=== PATIENT | female | born 1935 | race Caucasian/White ===

== ENCOUNTER → 2019-06-07 16:11 | Outpatient (BNVA) | payer MEDICARE, SELFPAY | PROVIDERS: Family Provider Internal Medicine; PCP Internal Medicine; Visit Provider Internal Medicine | DX: I10 Essential (primary) hypertension (principal); D51.0 Vitamin B12 deficiency anemia due to intrinsic factor deficiency; M10.9 Gout, unspecified; E03.9 Hypothyroidism, unspecified | CPT/HCPCS: 83540; 83550; 84443 ==

== ENCOUNTER → 2019-10-17 10:10 | Outpatient (BNVA) | payer MEDICARE, SELFPAY | PROVIDERS: Family Provider Internal Medicine; PCP Internal Medicine; Visit Provider Urology | DX: N35.92 Unspecified urethral stricture, female (principal); N34.3 Urethral syndrome, unspecified | CPT/HCPCS: 81001 ==

== ENCOUNTER → 2019-12-15 16:10 | Outpatient (BNVA) | payer MEDICARE, SELFPAY | PROVIDERS: Family Provider Internal Medicine; PCP Internal Medicine; Visit Provider Internal Medicine | DX: E11.9 Type 2 diabetes mellitus without complications (principal); K75.81 Nonalcoholic steatohepatitis (NASH); D51.0 Vitamin B12 deficiency anemia due to intrinsic factor deficiency; E78.5 Hyperlipidemia, unspecified | CPT/HCPCS: 80053; 80061; 83036; 84443; 85025 ==

== ENCOUNTER 2020-01-27 08:53 | Outpatient (CLI) | payer MEDICARE, SELFPAY ==
--- NOTE | 2020-01-27 09:00 | MM_ITS ---
WS: [id number] Bilateral screening digital mammogram, 01/27/2020 Clinical Data: SCREENING Comparison: 01/07/2019, 01/04/2018, 12/23/2016. Findings: The breast parenchymal pattern shows heterogeneous density. No spiculated masses or clustered calcifi cations are seen. There are no secondary signs of carcinoma. There are 2 biopsy markers in the medial aspect of the left breast. There are scattered benign calcifications which are probably ductal throu ghout both breasts. MM/[id number] Impression: 1. Negative bilateral mammogram unchanged. 2. Recommend annual screening mammograms. BIRADS: 2-Benign FOLLOW UP: 1 Year Follow-up The CAD production checker was used.
== END 2020-01-27 08:54 | disposition home or self-care (01) ==
LOC: RADSHAW 08:59
PROVIDERS: PCP Internal Medicine; Visit Provider Internal Medicine
DX: Z12.31 Encounter for screening mammogram for malignant neoplasm of breast (principal)
CPT/HCPCS: 77067

== ENCOUNTER → 2020-06-19 16:44 | Outpatient (BNVA) | payer MEDICARE, SELFPAY | PROVIDERS: PCP Internal Medicine; Visit Provider Internal Medicine | DX: R30.0 Dysuria (principal); E11.8 Type 2 diabetes mellitus with unspecified complications; R20.8 Other disturbances of skin sensation; D51.0 Vitamin B12 deficiency anemia due to intrinsic factor deficiency; E03.9 Hypothyroidism, unspecified; I25.10 Atherosclerotic heart disease of native coronary artery without angina pectoris | CPT/HCPCS: 80053; 80061; 81000; 83036; 83550; 84443; 85025 ==

== ENCOUNTER → 2020-11-21 10:13 | Outpatient (BNVA) | payer MEDICARE, SELFPAY | PROVIDERS: PCP Internal Medicine; Visit Provider Urology | DX: N39.0 Urinary tract infection, site not specified (principal); R39.198 Other difficulties with micturition | CPT/HCPCS: 81003 ==

== ENCOUNTER → 2021-03-05 09:22 | Outpatient (BNVA) | payer MEDICARE, SELFPAY | PROVIDERS: PCP Internal Medicine; Visit Provider Internal Medicine | DX: Z01.812 Encounter for preprocedural laboratory examination (principal); Z86.010 Personal history of colon polyps; Z20.822 Contact with and (suspected) exposure to COVID-19 | CPT/HCPCS: 87635 ==

== ENCOUNTER 2021-03-11 06:24 | Day surgery (SDC) | payer MEDICARE, SELFPAY ==
[2021-03-06 12:53] VITALS: BMI 27.4
[2021-03-11 06:48] VITALS: BP 147/71; PULSE 67; RESP 18; TEMP 36.1; O2SAT 99
[2021-03-11] MEDS: sodium chloride 0.9% 1,000 ML 30 ML IV (07:00)
--- NOTE | 2021-03-11 07:02 | ANES.PREANE2 ---
Pre-Anesthetic Assessment Pre-Anesthetic Assessment: Height/Weight: Height 1.63 m Weight 72.575 kg Temp Pulse Resp BP Pulse Ox 97 F L 67 18 147/71 99 03/11/21 06:48 03/11/21 06:48 03/11/21 06:48 03/11/21 06:48 03/11/21 06:48 Preop Diagnosis: His polyps Proposed Procedure: Operation Date: 03/11/21 07:30 Proposed Procedures p Colonoscopy 34087 Z86.010(Not Applicable) - Prosper Slade MD Familial anesthetic complications: hard to wake up Was Beta Zane taken within 24 hours: Yes Was Clonidine taken within 24 hours: N/A Last intake: Intake Last Liquid Date 03/10/21 Last Liquid Time 19:30 Last Solid Date 03/09/21 Last Solid Time 00:00 Social: Social History: No alcohol and No tobacco Exam: Pre-Anes Outpt Exam: alert, oriented x 3, clear to auscultation bilaterally and regular rate & rhythm Airway: Submandibular: WNL Cervical ROM: WNL MP: 1 Dentition: False History/ROS: No significant history except as noted Pulmonary: Pulmonary: SOB CV/HEM: CV/HEM: CAD, CHF and HTN Comments: 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 : : None reported Hepatic: Hepatic: None reported GI: GI: GERD Metabolic: Metabolic: DM and Thyroid Neuropsych: Neuropsych: None reported Anesthetic Plan: ASA status: 3 Anesthesia: MAC Risk of > 500 ml blood loss (7ml/kg in children): No Meds/Allergies Current Medications: Current Medications Generic Name Dose Route Start Last Admin Trade Name Freq PRN Reason Stop Dose Admin Sodium Chloride 1,000 mls @ 30 ml s/hr 03/11/21 06:45 03/11/21 07:00 Sodium Chloride 0.9% IV 30 mls/hr .Q24H LING Administration PFSH Anesthesia PFSH: Medical History (Updated 02/04/21 @ 13:55 by Prosper Slade MD) Acquired hypothyroidism CAD (coronary artery disease) Diabetes mellitus Dyslipidemia GERD (gastroesophageal reflux disease) Gout History of colon polyps [place] (hard of hearing) Slow urinary stream Vitamin B12 deficiency anemia due to intrinsic factor deficiency Surgical History History of appendectomy History of breast surgery History of cholecystectomy History of colonoscopy History of dilation of urethra History of hysterectomy S/P CABG (coronary artery bypass graft) Family History Other Cancer Diabetes Heart disease Lung disease Social History Smoking and tobacco status: never smoked Alcohol intake: never Household members: none Housing: House Marital status: / History of recent travel: No Data Anesthesia Cardiac Studies: No Data to Display
--- NOTE | 2021-03-11 07:47 | P.HP_ITS ---
Same Day Surgery H&P Indication for Procedure/HPI DATE OF PROCEDURE: March 11, 2021 CHIEF COMPLAINT/INDICATIONFOR SURGICAL PROCEDURE: History of polyps PREOP DIAGNOSIS: His polyps PLANNED PROCEDRUE: Operation Date: 03/11/21 07:30 Proposed Procedures p Colonoscopy 42559 Z86.010(Not Applicable) - Prosper Slade MD Medications/Allergies* Home Medications Medication Instructions Recorded Confirmed Type acetaminophen 500 mg tablet 500 mg PO Q6H PRN 08/31/19 03/11/21 History alendronate 70 mg PO .WEEKLY 03/11/21 03/11/21 History Allergies/Adverse Reactions Allergy/AdvReac Type Severity Reaction Status Date / Time adhesive tape Allergy ALGY-Rash Verified 03/11/21 06:50 aspirin Allergy ADR-Gastrointestinal Verified 03/11/21 07:26 Upset betamethasone Allergy ADR-Chest Verified 03/11/21 07:26 [From Celestone] Pain codeine Allergy ADR-Nausea Verified 03/11/21 07:26 cortisone Allergy ADR-Hyperte Verified 03/11/21 07:26 nsion diazepam [From Valium] Allergy ALGY-Rash Verified 03/11/21 07:26 dichloralphenazone Allergy ADR-Chest Verified 03/11/21 07:26 [From Midrin] Pain dimenhydrinate Allergy ADR-Drowsy Verified 03/11/21 07:26 [From Dramamine] hydrocortisone Allergy ADR-Nausea Verified 03/11/21 07:26 isometheptene [From Midrin] Allergy ADR-Headach Verified 03/11/21 07:26 e methylprednisolone Allergy ADR-Diarrhe Verified 03/11/21 07:26 a naproxen [From Anaprox] Allergy ADR-Diarrhe Verified 03/11/21 07:26 a NSAIDS (Non-Steroidal Allergy ADR-Diarrhe Verified 03/11/21 07:26 Anti-Inflamma a Opioids - Morphine Analogues Allergy Unknown Verified 03/11/21 07:26 oxycodone [From Percodan] Allergy ADR-Gastrointestinal Verified 03/11/21 07:26 Upset phenylpropanolamine Allergy ADR-Hyperte Verified 03/11/21 07:26 nsion prednisone Allergy ADR-Diarrhe Verified 03/11/21 07:26 a salsalate Allergy ADR-Blurry Verified 03/11/21 07:26 Vision spironolactone Allergy Unknown Verified 02/04/21 13:30 [From Aldactone] Sulfa (Sulfonamide Allergy ALGY-Fever Verified 03/11/21 07:26 Antibiotics) sulfasalazine Allergy ADR-Chest Verified 03/11/21 07:26 [From Azulfidine] Pain Thiazides Allergy ALGY-Rash Verified 03/11/21 07:26 Current Medications: Generic Name Dose Route Start Last Admin Trade Name Freq PRN Reason Stop Dose Admin Sodium Chloride 1,000 mls @ 30 mls/hr 03/11/21 06:45 03/11/21 07:00 Sodium Chloride 0.9% IV 30 mls/hr .Q24H LING Administration Pertinent History/Comorbid Conditions* Medical History (Updated 02/04/21 @ 13:55 by Prosper Slade MD) Acquired hypothyroidism CAD (coronary artery disease) Diabetes mellitus Dyslipidemia GERD (gastroesophageal reflux disease) Gout History of colon polyps [place] (hard of hearing) Slow urinary stream Vitamin B12 deficiency anemia due to intrinsic factor deficiency Surgical History (Updated 09/29/19 @ 16:18 by Rolando Dennison MD) History of appendectomy History of breast surgery History of cholecystectomy History of colonoscopy History of dilation of urethra History of hysterectomy S/P CABG (coronary artery bypass graft) Family History (Updated 06/01/19 @ 11:03 by Cathi Ayers LPN) Diabetes Heart disease Lung disease Cancer Social History Smoking and tobacco status: never smoked Alcohol intake: never Household members: none Housing: House Marital status: / History of recent travel: No Pertinent Exam Findings alert, oriented x 3, clear to auscultation bilaterally, regular rate & rhythm, operative site marked and procedure specific exam findings Recommendations Surgery/Procedure today Coding Level of Care Code Acute Distribution Collection Operator for Sakshi Ridley
[2021-03-11 08:20] VITALS: BP 139/65; PULSE 77; RESP 16; TEMP 36.1; O2SAT 100
--- NOTE | 2021-03-11 08:53 | ANE.PACU2 ---
Inpatient post-anesthesia follow up: Airway intact: Yes Vital signs: Temperature 97 F Pulse Rate 77 Respiratory Rate 16 Blood Pressure 139/65 Pulse Oximetry 100 Oxygen Delivery Me thod Room Air Oxygen Flow Rate 3 Fraction of Inspir ed Oxygen Hydration adequate: No Mental status: Baseline
--- NOTE | 2021-03-11 09:01 | XR_ITS ---
WS: [id number] Exam: XR abdomen 1V* [id number] Date/Time of Exam: 03/11/2021 9:01 AM Reason For Exam: abdominal pain following colonoscopy There is gaseous distention of both large and small bowel which may be a result of recent endoscopy. No free air identified. Organ margins are obscured. Regional bony elements are unremarkable. XR/XR abdomen 1V* [id number] IMPRESSION: 1. Gaseous distention of both large and small bowel loops which may be a result of the endoscopy or adynamic ileus. No sign of the free air or other significa nt finding.
--- NOTE | 2021-03-11 09:10 | PC.NURSE ---
Pt has passed gas and had bowel movement, she continues to complain of LLQ pain, informed Dr. Slade who ordered upright abdominal XRay prior to discharge.
--- NOTE | 2021-03-11 09:43 | PC.NURSE ---
Abdominal Xray was negative for perforation, per Dr. Slade instruction inserted rectal tube was inserted and remained for 15 minutes relieving pt's discomfort. pt states abdominal pain decreased to 3/10. Per Dr's order, pt discharged home.
[2021-03-11 14:25] LABS: Glucose Point of Care 106 mg/dL (70-110)
== END 2021-03-11 10:00 | disposition home or self-care (01) ==
PROVIDERS: PCP Internal Medicine; Visit Provider Internal Medicine
PROC: 0DJD8ZZ Inspection of Lower Intestinal Tract, Via Natural or Artificial Opening Endoscopic (ICD-10-PCS; CPT 45378; principal; 2021-03-11 07:30)
DX: Z86.010 Personal history of colon polyps (principal); K21.9 Gastro-esophageal reflux disease without esophagitis; I25.10 Atherosclerotic heart disease of native coronary artery without angina pectoris; D51.8 Other vitamin B12 deficiency anemias; E03.9 Hypothyroidism, unspecified; E11.9 Type 2 diabetes mellitus without complications; Z79.84 Long term (current) use of oral hypoglycemic drugs; Z88.6 Allergy status to analgesic agent; Z88.5 Allergy status to narcotic agent; Z88.2 Allergy status to sulfonamides; Z90.89 Acquired absence of other organs; Z90.49 Acquired absence of other specified parts of digestive tract; Z83.3 Family history of diabetes mellitus
CPT/HCPCS: 36416; 45378; 74018; 82962; 96360; J2704; J3490; J7030

== ENCOUNTER 2021-03-15 09:07 | Outpatient (CLI) | payer MEDICARE, SELFPAY ==
--- NOTE | 2021-03-15 09:20 | MM_ITS ---
WS: [id number] Exam: [place] [id number] Date/Time of Exam: 03/15/2021 9:45 AM Reason For Exam: SCREENING VIEWS: MLO and CC views both breasts. Comparison made with prior exam of 12/23/2016, 01/04/2018, 01/07/2019 and 01/27/2020 . Findings: There was no sign of mass, architectural distortion or suspicious calcification in either breast. He terogeneously [place] MM/[place] [id number] Impression: BI-RADS: 2-Benign FOLLOW-UP: 1 Year Follow-up This mammogram was also analyzed by the Computer Aided Detection System R2 Imag e Staff Development Educator.
== END 2021-03-15 09:08 | disposition home or self-care (01) ==
LOC: RADSHAW 09:12
PROVIDERS: PCP Internal Medicine; Visit Provider Internal Medicine
DX: Z12.31 Encounter for screening mammogram for malignant neoplasm of breast (principal)
CPT/HCPCS: 77067

== ENCOUNTER → 2021-05-23 10:56 | Outpatient (BNVA) | payer MEDICARE, SELFPAY | PROVIDERS: PCP Internal Medicine; Visit Provider Urology | DX: N34.3 Urethral syndrome, unspecified (principal) | CPT/HCPCS: 81003 ==

== ENCOUNTER → 2021-11-25 14:21 | Outpatient (BNVA) | payer MEDICARE, SELFPAY | PROVIDERS: PCP Internal Medicine; Visit Provider Urology | DX: N34.3 Urethral syndrome, unspecified (principal) | CPT/HCPCS: 52281; 99212 ==

== ENCOUNTER 2022-03-18 14:45 | Outpatient (CLI) | payer MEDICARE, SELFPAY ==
--- NOTE | 2022-03-18 14:56 | MM_ITS ---
WS: [id number] BILATERAL 3D TOMOSYNTHESIS DIGITAL SCREENING MAMMOGRAPHY WITH CAD CLINICAL INFORMATION: SCREENING HISTORY: Screening mammogram. No current complaints. COMPARISON: March 15, 2021 TECHNIQUE: Bilateral CC and MLO views. FINDINGS: The breasts are composed of heterogeneous fibroglandular density tissue, which can limit the detectio n of small underlying mass lesions. No suspicious mass, asymmetry, calcifications, or architectural d istortion. No evidence of malignancy. Dystrophic calcifications. Vascular calcifications. Biopsy clip LEFT breast. Secretory calcifications. MM/[id number] IMPRESSION: BI-RADS: 2-Benign FOLLOW UP: 1 Year Follow-up Recommend return to annual screening mammography.
== END 2022-03-18 14:46 | disposition home or self-care (01) ==
LOC: RAD 14:50
PROVIDERS: PCP Internal Medicine; Visit Provider Internal Medicine
DX: Z12.31 Encounter for screening mammogram for malignant neoplasm of breast (principal)
CPT/HCPCS: 77063; 77067

== ENCOUNTER → 2022-06-10 13:09 | Outpatient (BNVA) | payer MEDICARE, SELFPAY | PROVIDERS: PCP Nurse Practitioner; Visit Provider Urology | DX: N34.3 Urethral syndrome, unspecified (principal); R30.0 Dysuria | CPT/HCPCS: 52281; 81003; 87086; 99213 ==

== ENCOUNTER → 2022-07-10 14:52 | Outpatient (BNVA) | payer MEDICARE, SELFPAY | PROVIDERS: PCP Internal Medicine; Visit Provider Nurse Practitioner Family | DX: I25.10 Atherosclerotic heart disease of native coronary artery without angina pectoris (principal); Z95.1 Presence of aortocoronary bypass graft | CPT/HCPCS: 93005; 99213 ==

== ENCOUNTER 2022-07-15 15:37 | Outpatient (CLI) | payer MEDICARE, SELFPAY ==
[2022-07-15 16:13] LABS: Basophils % 0.4 %; Eosinophils # 0.1 10^3/uL (0.0-0.8); Eosinophils % 1.8 %; Hematocrit 37.4 % (37.0-47.0); Hemoglobin 12.2 g/dL (11.5-15.3); Lymphocytes # 1.7 10^3/uL (0.8-4.8); Lymphocytes % 30.5 %; Mean Corpuscular HGB Conc 32.6 g/dL (30.0-36.0); Mean Corpuscular Hemoglobin 31.4 pg (28.0-34.0); Mean Corpuscular Volume 96.1 fl (81-99); Mean Platelet Volume 8.5 fL (7.4-10.4); Monocytes # 0.4 10^3/uL (0.2-0.9); Neutrophils # 3.38 10^3/uL (1.8-7.7); Neutrophils % 60.1 %; Nucleated Red Blood Cells % 0 %; Platelet Count 120 10^3/cmm (130-400); Red Blood Count 3.89 10^6/uL (4.1-5.3); Red Cell Distribution Width 14.3 % (12.1-15.1); White Blood Count 5.6 10^3/uL (4.0-10.0)
[2022-07-15 16:24] LABS: INR 0.91 (0.83-1.21); Prothrombin Time (Patient) 12.5 Seconds (12.0-15.1)
[2022-07-15 16:30] LABS: Anion Gap 13.4 (5-19); Blood Urea Nitrogen 17 mg/dL (8-23); Calcium 9.5 mg/dL (8.5-10.5); Carbon Dioxide 34 mmol/L (22-29); Chloride 100 mmol/L (98-107); Glucose 72 mg/dL (65-115); Osmolality Calculated 298 mOsm/kg (285-295); Potassium 3.4 mmol/L (3.5-5.1); Sodium 144 mmol/L (136-145)
== END 2022-07-15 15:38 | disposition home or self-care (01) ==
LOC: LAB 15:49
PROVIDERS: PCP Internal Medicine; Visit Provider Internal Medicine
DX: I10 Essential (primary) hypertension (principal); R58 Hemorrhage, not elsewhere classified
CPT/HCPCS: 80048; 85025; 85610; 99214

== ENCOUNTER 2022-07-17 08:35 | Outpatient (CLI) | payer MEDICARE, SELFPAY ==
[2022-07-17] VITALS (28 sets, daily range): BP systolic 118–156; BP diastolic 48–100; PULSE 58–73; RESP 9–22; TEMP 36.8; O2SAT 92–98; BMI 26.1
--- NOTE | 2022-07-17 09:00 | XACV_ITS ---
Ht: 163 cm Wt: 69 kg BSA: 1.78 m2 Gender: Female : 1935 Any Known Allergies: Other Exam Priority: Routine Procedure(s): Procedure Description: Diagnostic procedure Procedure Description: Left Heart Catheterization Procedure Description: Venous Graft Catheterization Procedure Description: MAY Graft Catheterization Procedure Description: Coronary Angiography Diagnostic Cath Status: Elective Diagnostic Findings * Separate ostia of LAD and LCx. * Left circumflex artery has moderate 40% proximal left circumflex artery stenosis. OM branches are occluded.. * LAD: Patent, has diffuse mild to moderate disease. No severe disease. * RCA: Patent. * Bypass grafts: SVG to OM: Patent. MAY to LAD: Atretic.. * Coronary angiography shows co-dominance. Conclusions 1. Patent SVG to OM. MAY to LAD is atretic but zuni vessel is patent. 2. Patient has prior CABG. Recommendations * Aggressive risk factor modification. * Long acting nitrates to treat microvascular dysfunction. * Outpatient cardiology follow up in 4 weeks. Interventional RX Recommendation: medical therapy and/or counseling Diagnostic RX Recommendation: medical therapy and/or counseling Pressures Phase:Rest AO : 173 / 66 ( 110 ) @ 11:41:00 AM 149 / 81 ( 114 ) @ 11:42:00 AM 173 / 63 ( 110 ) @ 11:54:00 AM 171 / 61 ( 109 ) @ 11:55:00 AM LV : 173 / -8 / 26 @ 11:54:00 AM 174 / -8 / 26 @ 11:54:00 AM Valves Phase:DefaultPhase AV : 0.0 @ 11:03:52 AM AV Mean Gradient: 0.0 @ 11:03:52 AM 0.0 @ 11:03:52 AM Clinical Evaluation EBL: 5mL-10mL Procedural Details Procedure Consent Obtained. Pre-Procedure Time Out. Identified patient by full name and date of as verbalized by the patient/guarantor. Does the consent match the physician's order: Yes. Accurate & Complete Informed Consent: Yes. Inpatient/Outpatient History & Physical on Chart: Yes. If H&P is completed, is and addenduem needed: No; If yes, is the addendum complete: N/A. Visualize and Verify Site with Patient/Guarantor: N/A. Relevant Radiology Images available: Yes. Pre-op teaching completed and patient verbalized understanding. The risks, benefits, and alternatives of sedation and/or procedure were discussed by physician. The patient agrees to continue. Procedure started. [facility] Clinical Fraility Score: 3: Managing Well. Polishing Pad Mounter Indications: Worsening Angina. Chest Pain Symptom Assessment: Atypical Angina. Correct patient, site and procedure confirmed by cath team. Current diagnosis: Chest Pain. PERRLA. Strong, equal hand moving worker bilaterally. Lungs clear x 5 lobes. A 20 gauge IV was started in the right anticubital using aseptic technique. IV Fluids: 0.9% NaCl at KVO. 0 mL infused prior to woods laborer. Pre Procedural Pulses: bilateral dorsalis pedis was 1+. Pre Procedural Pulses: bilateral posterior tibial was 1+. Pre Procedural Pulses: bilateral radial was 1+. Oxygen started at 2liters/min via nasal canula. bilateral groins was prepped with chloroprep then draped in the usual sterile fashion. Baseline sample Acquired. HR: 70 BPM. Physician arrived. Physician scrubbed in. Immediate Pre-Procedure Time Out. Correct Patient: Yes; Correct Procedure: Yes; Correct Site: Yes; Correct Patient Position: Yes; Correct Supplies: Yes; Dried Flammable Prep: Yes; Blood Products Available: N/A;. Lidocaine 1% infiltrated to the right groin. Arterial access obtained with micropuncture set. Multiple views taken of left coronary artery. Catheter removed over the standard wire. A 5 anguillan JL4 catheter in over wire. A 5 anguillan JR4 catheter in over wire. Multiple views taken of right coronary artery. SVG's to OM visualized and patent. MAY to LAD visualized. EDP Sample taken: LV 173/-9,26; HR: 71 BPM; SpO2: 100%. Pullback taken: LV 174/-9,26; AO 173/63(110); Mean: 0mmHg, Peak to Peak: 0mmHg, SEP: 17sec/min; HR: 71 BPM; SpO2: 100%. Catheter removed over the standard wire. Physician review of cine films. Physician scrubbed out. A Suture was successful obtaining hemostatsis at the Right Femoral artery insertion site. Arterial sheath flushed and connected to tranducer and pressure bag with heparinized saline. Post Procedure: Pulses reassessed and unchanged. PERRLA. Strong, equal hand moving worker bilaterally. No VTE prophylaxis required. Medication's Wasted: Other = Versed 2 mg. Medication's Wasted: Lidocaine 1% = 1 mL. Medication's Wasted: Heparin = 1000 units. Total IV fluids: 35 mL. Complications: None. Estimated blood loss: 5mL-10mL. Responsiveness - Normal response to verbal stimuli; alert and oriented, PERRLA. Airway - Unaffected, no intervention required; spontaneous ventilation. Circulation: W/N/L, pulses unchanged. Nausea/Vomiting: No. Procedure completed. Patient transferred by stretcher to CPRU. Vital chart was stopped. Access Site Site: Right Femoral artery Sheath Size: 6 Fr Hemostasis Method: Suture Hemostasis Success: Successful Procedure Medications Start: 10:34 AM Stop: 10:34 AM Medication: Fentanyl Amount: 50 mcg Route: I.V. Start: 10:47 AM Stop: 10:47 AM Medication: Fentanyl Amount: 25 mcg Route: I.V. Start: 10:55 AM Stop: 10:55 AM Medication: Fentanyl Amount: 25 mcg Route: I.V. I, the attending physician, have reviewed and verified all procedure medications. Yes, all medications given per verbal order History/Risk Factors Hypertension: Yes Dyslipidemia: Yes Peripheral Arterial Disease (PAD): No Myocardial Infarction (WV): No Obesity: No Renal Disease: No Prior Interventions PCI: No CABG: Yes Valve Surgery: No Report Signatures Finalized by Chapo Whitman MD on 07/27/2022 07:30 AM
[2022-07-17] MEDS: diphenhydrAMINE 50 mg Capsule PO (09:30)
--- NOTE | 2022-07-17 10:18 | W.PM.OPSUD ---
Surgery/Procedure H&P Update DATE OF PROCEDURE: July 17, 2022 DATE H&P PERFORMED: 07/15/22 H&P UPDATE INFORMATION: I have reviewed H&P completed within last 30 days, I have examined patient prior to procedure and No changes to prior documentation PREOP DIAGNOSIS: Worsening angina PRIMARY INDICATION FOR PROCEDURE: Worsening angina PLANNED PROCEDURE: Operation Date: 07/17/22 10:00 Proposed Procedures p Left Heart Cath 70566,I20.0, I25.10(Left) - Chapo Whitman M.D Possible percutaneous coronary intervention PATIENT REASSESSED PRIOR TO SEDATION, WITH NO CHANGE NOTED: Yes PHYSICAL EXAM: alert, oriented x 3, clear to auscultation bilaterally and regular rate & rhythm AIRWAY EVAL/ANESTHESIA PLAN: normal airway, ASA III, Local Anesthesia, Risks, benefits & alternatives of sedation and/or procedure discussed and Patient agrees to continue as planned ADDITIONAL INFORMATION: Moderate sedation
[2022-07-17 12:17] LABS: Glucose Point of Care 117 mg/dL (70-110)
== END 2022-07-17 19:37 | disposition home or self-care (01) ==
LOC: CCL 08:38 → CSU 13:45
PROVIDERS: PCP Internal Medicine; Visit Provider Internal Medicine
DX: I25.110 Atherosclerotic heart disease of native coronary artery with unstable angina pectoris (principal); Z95.1 Presence of aortocoronary bypass graft; I10 Essential (primary) hypertension; E78.5 Hyperlipidemia, unspecified; E11.9 Type 2 diabetes mellitus without complications; K21.9 Gastro-esophageal reflux disease without esophagitis
CPT/HCPCS: 36415; 36416; 82962; 93459; 96361; 96365; 99152; 99153; C1769; C1887; C1894; J1644; J2250; J3010; J7030; Q0163; Q9967

== ENCOUNTER → 2022-07-25 10:05 | Outpatient (BNVA) | payer MEDICARE, SELFPAY | PROVIDERS: PCP Internal Medicine; Visit Provider Nurse Practitioner Family | DX: R07.9 Chest pain, unspecified (principal) | CPT/HCPCS: 36415; 80048; 99214 ==

== ENCOUNTER → 2022-08-08 10:38 | Outpatient (BNVA) | payer MEDICARE, SELFPAY | PROVIDERS: PCP Internal Medicine; Visit Provider Internal Medicine | DX: R06.02 Shortness of breath (principal); R07.9 Chest pain, unspecified; R00.2 Palpitations; I25.10 Atherosclerotic heart disease of native coronary artery without angina pectoris; Z95.1 Presence of aortocoronary bypass graft; E11.9 Type 2 diabetes mellitus without complications; E78.5 Hyperlipidemia, unspecified; I10 Essential (primary) hypertension; Z79.84 Long term (current) use of oral hypoglycemic drugs | CPT/HCPCS: 99214 ==

== ENCOUNTER 2022-08-11 14:53 | Outpatient (CLI) | payer MEDICARE, SELFPAY ==
--- NOTE | 2022-08-11 15:15 | USCV_ITS ---
FriendHaydee Age: 86 Gender: F : 1935 Exam Date: 08/11/2022 15:10 Ordering Phys: Chapo Whitman M.D ([email or web address]) Technologist: [place] [facility] [place]: chest pain murmur BP: 126 / 73 HR: 69 Rhythm: Sinus Technical Quality: Adequate MEASUREMENTS (Male / Female) Normal Values 2D ECHO LV Diastolic Diameter PLAX 3.1 cm 4.2 - 5.9 / 3.9 - 5.3 cm LV Systolic Diameter PLAX 2.3 cm IVS Diastolic Thickness 1.5 cm 0.6 - 1.0 / 0.6 - 0.9 cm IVS Systolic Thickness 1.3 cm LVPW Diastolic Thickness 1.0 cm 0.6 - 1.0 / 0.6 - 0.9 cm LVPW Systolic Thickness 1.4 cm LVOT Diameter 2.0 cm LV Ejection Fraction 2D Teich 52.6 % LV Ejection Fraction MOD 2C 59.9 % LV Ejection Fraction 2C AL 61.1 % LA Diameter 3.4 cm IVC Diameter 0.9 cm M-MODE Aortic Annulus Diameter 3.7 cm LA Ao Ratio MM 0.9 MV E Point Septal Separation 1.3 cm DOPPLER AV Peak Velocity 173.0 cm/s LVOT Peak Velocity 138.0 cm/s AV Area Cont Eq vti 2.3 cm squared AV Area Cont Eq pk 2.5 cm squared MV Area PHT 1.5 cm squared Mitral E to A Ratio 0.7 MV E' Velocity 62.5 cm/s Mitral E to MV E' Ratio 23.6 Mitral E to LV E' Lateral Ratio 17.4 Mitral E to LV E' Septal Ratio 36.9 TR Peak Velocity 177.0 cm/s TR Peak Gradient 12.5 mmHg TV Peak E Velocity 69.0 cm/s Right Atrial Pressure 3.0 mmHg Pulmonary Artery Systolic Pressu 15.5 mmHg RV Acceleration Time 0.1 s FINDINGS Left Ventricle Left ventricle is normal in size. LV systolic function is normal with EF of 55 to 60%. No regional wall motion abnormalities are seen. Moderate left ventricular hypertrophy. Grade 1 diastolic dysfunction Right Ventricle Normal in size and function Right Atrium Normal in size Left Atrium Normal in size Mitral Valve Severe mitral annular calcification. Aortic Valve Aortic valve is thickened.No significant aortic stenosis. Mild aortic regurgitation. Tricuspid Valve Mild tricuspid regurgitation. Pulmonary artery systolic pressure is normal. Pulmonic Valve Not well visualized Pericardium Normal Aorta Normal in size IVC Appears to be normal CONCLUSIONS LV systolic function is normal with EF of 55 to 60%. Moderate mild left ventricular hypertrophy Grade 1 diastolic dysfunction Mitral annular calcification. Mild aortic regurgitation Mild tricuspid regurgitation No comparison studies are available. Chapo Whitman MD (Electronically Signed) Final Date: 23 August 2022 15:47 S
== END 2022-08-11 14:54 | disposition home or self-care (01) ==
LOC: RAD 14:58
PROVIDERS: PCP Internal Medicine; Visit Provider Internal Medicine
DX: R07.9 Chest pain, unspecified (principal); R06.02 Shortness of breath
CPT/HCPCS: 93306

== ENCOUNTER 2023-04-01 10:55 | Outpatient (CLI) | payer MEDICARE, SELFPAY ==
--- NOTE | 2023-04-01 10:57 | MM_ITS ---
WS: [id number] Bilateral screening 3D tomosynthesis digital mammogram, 04/01/2023 Clinical Data: SCREENING Comparison: 03/18/2022, 03/15/2021, 03/28/2020, 01/07/2019, 01/04/2018, 12/23/2016. Findings: The breast parenchymal pattern shows fibroglandular tissue. No spiculated masses or clustered calcifi cations are seen. There are no secondary signs of carcinoma. There are benign ductal and dystrophic c alcifications throughout both breasts. There is a biopsy clip in the central portion of the left [address]. Impression: 1. Negative bilateral mammogram unchanged. 2. Recommend annual screening mammograms. MM/[id number] BIRADS: 1-Negative FOLLOW UP: 1 Year Follow-up The CAD tool or die drawing checker was used.
== END 2023-04-01 10:56 | disposition home or self-care (01) ==
LOC: MOBLMAM 11:01
PROVIDERS: PCP Internal Medicine; Visit Provider Internal Medicine
DX: Z12.31 Encounter for screening mammogram for malignant neoplasm of breast (principal)
CPT/HCPCS: 77063; 77067

== ENCOUNTER 2023-04-07 06:00 | Outpatient (RCR) | payer MEDICARE, SELFPAY | END 2023-04-26 23:59 | disposition home or self-care (01) | LOC: WPT 06:00 | PROVIDERS: PCP Internal Medicine; Visit Provider Internal Medicine | DX: R29.6 Repeated falls (principal) | CPT/HCPCS: 97110; 97112; 97163; 97530 ==

== ENCOUNTER 2023-04-27 06:00 | Outpatient (RCR) | payer MEDICARE, SELFPAY | END 2023-05-27 23:59 | disposition home or self-care (01) | LOC: WPT 06:00 | PROVIDERS: PCP Internal Medicine; Visit Provider Internal Medicine | DX: R29.6 Repeated falls (principal) | CPT/HCPCS: 97110; 97112; 97530 ==

== ENCOUNTER 2023-05-28 06:00 | Outpatient (RCR) | payer MEDICARE, SELFPAY | END 2023-06-25 23:59 | disposition home or self-care (01) | LOC: WPT 06:00 | PROVIDERS: PCP Internal Medicine; Visit Provider Internal Medicine | DX: R29.6 Repeated falls (principal) | CPT/HCPCS: 97110; 97112; 97164; 97530 ==

== ENCOUNTER → 2023-06-11 08:56 | Outpatient (BNVA) | payer MEDICARE, SELFPAY | PROVIDERS: PCP Internal Medicine; Visit Provider Internal Medicine | DX: E11.9 Type 2 diabetes mellitus without complications (principal) | CPT/HCPCS: 83036 ==

== ENCOUNTER 2023-06-26 06:00 | Outpatient (RCR) | payer MEDICARE, SELFPAY | END 2023-07-26 23:59 | disposition home or self-care (01) | LOC: WPT 06:00 | PROVIDERS: PCP Internal Medicine; Visit Provider Internal Medicine | DX: R29.6 Repeated falls (principal) | CPT/HCPCS: 97110; 97112; 97530 ==

== ENCOUNTER 2023-09-29 06:00 | Outpatient (RCR) | payer MEDICARE, SELFPAY | END 2023-10-25 23:59 | disposition home or self-care (01) | LOC: WPT 06:00 | PROVIDERS: PCP Internal Medicine; Visit Provider Internal Medicine | DX: R29.6 Repeated falls (principal) | CPT/HCPCS: 97110; 97112; 97161; 97530 ==

== ENCOUNTER 2023-10-27 06:00 | Outpatient (RCR) | payer MEDICARE, SELFPAY | END 2023-11-25 23:59 | disposition home or self-care (01) | LOC: WPT 06:00 | PROVIDERS: PCP Internal Medicine; Visit Provider Internal Medicine | DX: R29.6 Repeated falls (principal) | CPT/HCPCS: 97110; 97112; 97164; 97530 ==

== ENCOUNTER 2024-02-25 06:00 | Outpatient (RCR) | payer MEDICARE, SELFPAY | END 2024-02-25 23:59 | disposition home or self-care (01) | LOC: WPT 06:00 | PROVIDERS: PCP Internal Medicine; Visit Provider Internal Medicine | DX: M72.2 Plantar fascial fibromatosis (principal) | CPT/HCPCS: 97110; 97162 ==

== ENCOUNTER 2024-02-26 06:00 | Outpatient (RCR) | payer MEDICARE, SELFPAY | END 2024-03-26 23:59 | disposition home or self-care (01) | LOC: WPT 06:00 | PROVIDERS: PCP Internal Medicine; Visit Provider Internal Medicine | DX: M72.2 Plantar fascial fibromatosis (principal) | CPT/HCPCS: 97110; 97112; 97140; 97530 ==

== ENCOUNTER 2024-03-27 06:00 | Outpatient (RCR) | payer MEDICARE, SELFPAY | END 2024-04-26 23:59 | disposition home or self-care (01) | LOC: WPT 06:00 | PROVIDERS: PCP Internal Medicine; Visit Provider Internal Medicine | DX: M72.2 Plantar fascial fibromatosis (principal) | CPT/HCPCS: 97110; 97112; 97140; 97530 ==

== ENCOUNTER 2024-04-04 10:52 | Outpatient (CLI) | payer MEDICARE, SELFPAY ==
--- NOTE | 2024-04-04 10:55 | MM_ITS ---
WS: [id number] VIEWS: MLO and CC views both breasts. 3D digital tomosynthesis is also included in this exam. Comparison made with prior exam of 12/23/2016, 01/04/2018, 01/07/2019, 01/27/2020, 03/15/2021, 03/18/2022 , 04/01/2023.. Findings: The breasts are heterogeneously dense, which may obscure small masses. No sign of suspicious mass, tumor calcification or architectural distortion. Biopsy clip seen at abou t the 11 o'clock position in the LEFT breast. MM/MM scr BI tomosynthesis [id number] Impression: BI-RADS: 2 - Benign FOLLOW-UP: 1 Year Follow-up This mammogram was also analyzed by the Computer Aided Detection System R2 Imag e Admeasurer.
== END 2024-04-04 10:53 | disposition home or self-care (01) ==
LOC: RAD 10:53
PROVIDERS: PCP Internal Medicine; Visit Provider Internal Medicine
DX: Z12.31 Encounter for screening mammogram for malignant neoplasm of breast (principal); R92.333 Mammographic heterogeneous density, bilateral breasts
CPT/HCPCS: 77063; 77067

== ENCOUNTER 2024-04-27 06:00 | Outpatient (RCR) | payer MEDICARE, SELFPAY | END 2024-05-27 23:59 | disposition home or self-care (01) | LOC: WPT 06:00 | PROVIDERS: PCP Internal Medicine; Visit Provider Internal Medicine | DX: M72.2 Plantar fascial fibromatosis (principal) | CPT/HCPCS: 97110; 97112; 97116; 97140; 97530 ==

== ENCOUNTER 2024-09-25 05:00 | Outpatient (RCR) | payer MEDICARE, SELFPAY | END 2024-10-24 23:59 | disposition home or self-care (01) | LOC: WPT 05:00 | PROVIDERS: Visit Provider Internal Medicine | DX: M72.2 Plantar fascial fibromatosis (principal) | CPT/HCPCS: 97110; 97112; 97140; 97163; 97530 ==

== ENCOUNTER 2024-10-25 05:00 | Outpatient (RCR) | payer MEDICARE, SELFPAY | END 2024-11-24 23:59 | disposition home or self-care (01) | LOC: WPT 05:00 | PROVIDERS: Visit Provider Internal Medicine | DX: M72.2 Plantar fascial fibromatosis (principal) | CPT/HCPCS: 97110; 97112; 97140; 97530 ==

== ENCOUNTER → 2024-11-22 14:01 | Outpatient (BNVA) | payer MEDICARE, SELFPAY | PROVIDERS: Visit Provider Podiatrist Foot & Ankle Surgery | DX: M76.822 Posterior tibial tendinitis, left leg (principal) | CPT/HCPCS: 99203 ==

== ENCOUNTER 2025-04-10 08:38 | Outpatient (CLI) | payer MEDICARE, MEDICAID, SELFPAY ==
--- NOTE | 2025-04-10 08:50 | MM_ITS ---
WS: [id number] BILATERAL SCREENING DIGITAL TOMOSYNTHESIS MAMMOGRAM WITH CAD HISTORY: SCREENING COMPARISON: 04/04/2024, 04/01/2023, 03/18/2022 Bilateral CC and MLO views with tomosynthesis and synthetic mammography submitted. Computer aided detection analyzed. Breast composition: The breasts are heterogeneously dense, which may obscure small masses. No suspicious masses, microcalcifications or architectural distortion. Numerous calcifications within each breast. No mass or distortion. MM/MM scr tomosynthesis [id number] IMPRESSION: BI-RADS: 2 - Benign FOLLOW UP: 1 Year Follow-up
== END 2025-04-10 08:39 | disposition home or self-care (01) ==
PROVIDERS: PCP Internal Medicine; Visit Provider Internal Medicine
DX: Z12.31 Encounter for screening mammogram for malignant neoplasm of breast (principal); R92.333 Mammographic heterogeneous density, bilateral breasts; R92.1 Mammographic calcification found on diagnostic imaging of breast
CPT/HCPCS: 77063; 77067